=== PATIENT | female | born 1980 | race American Indian/Alaskan Native ===

== ENCOUNTER 2025-03-02 00:54 | Inpatient (IN) | payer OTHER, MEDICAID, SELFPAY ==
[2025-03-02] VITALS (12 sets, daily range): BP systolic 111–141; BP diastolic 65–86; PULSE 82–93; RESP 14–22; TEMP 36.2–37.1; O2SAT 97–100; BMI 49.6; BMI 53.6
--- NOTE | 2025-03-02 01:02 | XR_ITS ---
Examination: AP chest single view Technique one AP portable upright chest single view Exam date and time: March 02, 2025 0129 hrs. Indications: Shortness of breath today Findings: Mild prominence of ventricle Moderate elevation right hemidiaphragm Moderate osteopenia No pneumonia or pulmonary edema Impression: No pneumonia or pulmonary edema
--- NOTE | 2025-03-02 01:25 | PD.EDSKIN ---
ED Skin Abcess FB-RME/HPI General Chief complaint: Skin/Abscess/Foreign Body Stated complaint: RT LOWER LEG SWELLING Time Seen by Provider: 03/02/25 01:25 Arrival date/time: 03/02/25 00:54 RME / HPI RME / HPI narrative: This section includes all my notes and documentations, including HPI, PE, and ED course. Elvis Diane MD HPI: 45-year-old female here with about 24-hour history of right lower leg redness and swelling and warmth and pain. No obvious cause. No known injury. No recent travel history or prolonged bedrest. No obvious fever. Has chills on and off. No other complaints. ROS: All negative except as documented in HPI. Physical Exam: General: Alert and oriented. No acute distress when remaining still. Eyes: Conjunctivae and lids clear. ENT: No nasal congestion. Neck: Supple. Heart: RRR. Lungs: No respiratory distress. Good air movement. No rhonchi, wheezing, rales. Abdomen: Soft and nontender. Legs: Middle third of right lower leg remarkable for erythema and edema and calor and tenderness circumferentially. Skin: Warm and dry. Neuro: Alert and oriented X 3. I reviewed all diagnostic test results. My interpretation of the chest x-ray is infiltrates in left lower field, official radiology report is pending. Blood tests and urine tests remarkable for WBC 16.6, Hgb 7.3, ESR 83, CRP 17, procalcitonin 1.17. At this point, diagnoses include right lower leg cellulitis and severe anemia. Treatment here included IV fluid and Unasyn. I discussed the case with our hospitalist. About the presentation and exam and diagnostics and treatments here. And need of further care in the hospital. Will accept the patient. Elvis Diane MD Related Data Home Medications ?Medication ?Instructions ?Recorded ?Confirmed ferrous sulfate 325 mg (65 mg 325 mg PO BID 07/25/21 07/25/21 iron) tablet,delayed release Previous Rx's ?Medication ?Instructions ?Recorded cyclobenzaprine 10 mg tablet 10 mg PO TID #30 tabs 11/17/19 ibuprofen 600 mg tablet 600 mg PO Q6H #30 tabs 11/17/19 albuterol sulfate 90 mcg/actuation 2 puff inhalation Q4H #8.5 grams 07/25/21 aerosol inhaler Allergies Allergy/AdvReac Type Severity Reaction Status Date / Time No Known Allergies Allergy Verified 07/04/23 20:38 Course Quality Measures none Orders Category Date Time Status COVID-19 Screening Questionnaire NOW Care 03/02/25 02:19 Active Decision to Admit X1 Care 03/02/25 02:19 Active Saline [Insert IV] NOW Care 03/02/25 01:01 Active XR chest 1V portable Stat Exams 03/02/25 01:02 Taken Blood Culture (Lab) Stat Lab 03/02/25 01:20 Received CBC Stat Lab 03/02/25 01:20 Completed CMP [Comprehensive Metabolic Panel] Stat Lab 03/02/25 01:20 Completed CRP [C-Reactive Protein] Stat Lab 03/02/25 01:20 Completed ESR [Sed Rate (ESR)] Stat Lab 03/02/25 01:20 Completed Free T4 (Free Thyroxine) Stat Lab 03/02/25 01:20 Completed HCG,Qualitative Serum Stat Lab 03/02/25 01:20 Completed Lactate (Lactic Acid) Stat Lab 03/02/25 01:20 Completed Magnesium Stat Lab 03/02/25 01:20 Completed Procalcitonin Stat Lab 03/02/25 01:20 Completed UA, C/S IF [Urinalysis, C/S if Indicated] Stat Lab 03/02/25 01:27 Completed Ampicillin/Sulbac Inj [Unasyn Inj] 3 gm Med 03/02/25 01:01 Discontinued Sodium Chloride 0.9% (Pop) [NS 0.9% mini bag] 100 ml IV X1 Doxycycline Inj [Vibramycin Inj] 100 mg Med 03/02/25 03:15 Pending Sodium Chloride 0.9% (Pop) [NS 0.9% mini bag] 100 ml IV Q12H Sodium Chloride 0.9% 1000 ml [Ns] 1,000 ml Med 03/02/25 01:01 Discontinued IV 999 mls/hr ceFAZolin/D5W 2 GM IV [Ancef 2gm Ivpb] Med 03/02/25 03:07 Pending 2 gm in 100 ml IV Q8HR Vital Signs Vital signs: Vital Signs Temperature 98.1 F 03/02/25 00:59 Pulse Rate 93 03/02/25 00:59 Respiratory Rate 18 03/02/25 00:59 Blood Pressure 132/73 H 03/02/25 00:59 Pulse Oximetry (%) 99 03/02/25 00:59 Oxygen Delivery Method Room Air 03/02/25 00:59 Skin / Abscess / Foreign Body Patient data External records reviewed:: [facility] previous records and EMS form Clinical information provided by:: patient and EMS Social determinants that could affect healthcare access:: none Patient has the following chronic illnesses:: Chronic iron deficiency anemia How is presenting disease/condition affected by chronic disease/condition?: exacerbated by Evaluation data The following diagnostics were reviewed and interpreted by me:: lab results and radiology exam(s) Lab and/or radiology exams considered but not ordered:: None Interpretation Summary: Cellulitis and severe anemia Medications / Prescriptions Medications or Prescriptions considered but not ordered:: None Medication administrations:: Medication Administration History Acetaminophen (Acetaminophen 325 Mg Tablet) 650 mg PO Q6H PRN PRN Reason: Fever >101.5 Stop: 04/01/25 03:08 Acetaminophen (Acetaminophen 325 Mg Tablet) 650 mg PO Q6H PRN PRN Reason: PAIN SCALE 1-3 (mild Stop: 04/01/25 03:08 Ferrous Sulfate (Ferrous Sulf 325 Mg Tablet) 325 mg PO QOD [facility] Stop: 04/01/25 08:59 Heparin Sodium (Porcine) (Heparin Sod Inj 5000 Unit/Ml Vial) 5,000 unit SC Q8HR [facility] Stop: 03/16/25 05:59 Hydromorphone HCl (Hydromorphone Inj 2 Mg/Ml Vial) 0.5 mg IVP Q2H PRN PRN Reason: PAIN SCALE 7-10 (Severe Stop: 03/07/25 03:08 Last Admin: 03/02/25 03:49 Dose: 0.5 mg Documented By: EF Cefazolin Sodium (Ancef 2gm Ivpb) 2 gm in 100 mls @ 100 mls/hr IV Q8HR [facility] Stop: 03/09/25 03:06 Doxycycline Hyclate 100 mg/ (Sodium Chloride) 100 mls @ 100 mls/hr IV Q12H [facility] Stop: 03/09/25 03:14 Ondansetron HCl (Ondansetron Inj 2 Mg/Ml Inj 2 Ml) 4 mg IV Q6H PRN; Protocol PRN Reason: NAUSEA OR VOMITING Stop: 04/01/25 03:08 Last Admin: 03/02/25 03:49 Dose: 4 mg Documented By: JEO Oxycodone/Acetaminophen (Oxycodone/Apap 5/325 Tablet) 1 tab PO Q6H PRN PRN Reason: PAIN SCALE 4-6 (Moderate Stop: 03/07/25 03:08 Discontinued Medications Sodium Chloride (Ns) 1,000 mls @ 999 mls/hr IV .Q1H1M ONE Stop: 03/02/25 02:01 Last Infusion: 03/02/25 02:36 Dose: Infused Documented By: Admin: 03/02/25 01:35 Dose: 999 mls/hr Documented By: MILE Ampicillin Sodium/Sulbactam (Sodium 3 gm/ Sodium Chloride) 100 mls @ 200 mls/hr IV X1 ONE Stop: 03/02/25 01:02 Last Infusion: 03/02/25 02:05 Dose: Infused Documented By: Admin: 03/02/25 01:35 Dose: 200 mls/hr Documented By: MILE Doxycycline Hyclate 100 mg/ (Sodium Chloride) 100 mls @ 100 mls/hr IV X1 ONE Stop: 03/02/25 04:14 Last Admin: 03/02/25 03:50 Dose: 100 mls/hr Documented By: JOE Cefazolin Sodium (Ancef 2gm Ivpb) 2 gm in 100 mls @ 100 mls/hr IV X1 ONE Stop: 03/02/25 04:14 In the ER, patient received IV fluid and Unasyn. Consultations Consultation(s) initiated? (list below): No Diagnosis Skin/Abscess Differential Diagnosis: abscess of skin or subcutaneous tissue, urticaria, allergic reaction to drug, cellulitis, insect bites, impetigo and contact dermatitis Most likely diagnosis given after review of the tests above:: Cellulitis and severe anemia Admission Indicated Admission indicated?: indicated Explain why admission is indicated or not indicated:: Cellulitis with pending sepsis and severe anemia Admission Request Was there a request for admission?: Yes Admission Attestation Admission request attestation: Discussed case with Hospitalist service regarding admission. Discussed patients ED course, exam findings, labs, and radiology results. The Hospitalist [agrees] to accept the patient for admission. Disposition Plan Disposition Plan: Admit Discharge Plan Plan Patient Disposition: Admit Acute Care w/in Hospital Problem List Clinical Impression: Cellulitis of right lower leg, Severe anemia
[2025-03-02 01:34] LABS: Collection Type, Urine Clean Catch
[2025-03-02 01:35] LABS: Lactate (Lactic Acid) 1.5 mMol/L (0.4-2.0)
[2025-03-02] MEDS: SODIUM CHLORIDE 0.9% 1000 ML 1,000 ML 999 ML IV (01:35)
[2025-03-02] MEDS: AMPICILLIN/SULBAC INJ 3 GM in SODIUM CHLORIDE 0.9% (POP) 100 ML IV (01:35)
[2025-03-02 01:48] LABS: Basophils % (Auto) 0 % (0-2.5); Eosinophils % (Auto) 0 % (0-10); Hematocrit 27.3 % (36.0-46.0); Immature Granulocytes % (Auto) 0 % (0-0); Immature Granulocytes Auto 0.06 Thou/mm3 (0.00-0.00); Lymphocytes # (Auto) 1.6 Thou/mm3 (1.0-4.8); Lymphocytes % (Auto) 9 % (10-50); Mean Corpuscular HGB Conc 26.7 g/dl (31.0-37.0); Mean Corpuscular Volume 60 fL (80-100); Monocytes # (Auto) 0.9 Thou/mm3 (0.0-0.8); Monocytes % (Auto) 5 % (0-12); Neutrophils % (Auto) 85 % (37-80); Nucleated Red Blood Cell % 0 /100 WBC (0); Platelet Count 569 Thou/mm3 (140-440); RDW Standard Deviation 40.1 fL (36.4-46.3); Red Blood Count 4.57 Miln/mm3 (4.00-5.20); White Blood Count 16.6 Thou/mm3 (3.6-11.0)
[2025-03-02 01:49] LABS: Hemoglobin 7.3 g/dL (12.0-16.0)
[2025-03-02 01:49] LABS: Bilirubin,Urine Negative (Negative); Blood,Urine Negative (Negative); Clarity,Urine Clear (Clear/Hazy); Color,Urine Lt-Yellow (Lt Yel-Yel); Culture Indicated,Urine Not Indicated; Glucose, Urine Negative (Negative); Hyaline Casts,Urine < 1 /hpf (0-1); Ketones,Urine Negative (Negative); Leukocyte Esterase,Urine Negative (Negative); Nitrite,Urine Negative (Negative); PH,Urine 5.5 (5.0-7.0); Protein,Urine Negative (Neg - Trace); RBC,Urine 1 /hpf (0-3); Specific Gravity,Urine 1.012 (1.001-1.035); Squamous Epithelial Cell,Urine 1 /hpf (0-5); Urobilinogen,Urine Negative mg/dL (0.0-1.0); WBC,Urine 1 /hpf (0-5)
[2025-03-02 01:53] LABS: HCG,Qualitative Serum Negative
[2025-03-02 01:55] LABS: Sed Rate (ESR) 83 mm/hr (0-20)
[2025-03-02 02:19] LABS: Alanine Aminotransferase 18 U/L (10-49); Albumin, Serum 4.1 gm/dL (3.5-5.0); Albumin/Globulin Ratio 1.4 (1.2-2.2); Alkaline Phosphatase 109 U/L (46-116); Anion Gap 9 (7-16); Aspartate Amino Transferase 18 U/L (0-34); BUN/Creatinine Ratio 16 Ratio (12-20); Bilirubin,Total 1.1 mg/dL (0.3-1.2); Blood Urea Nitrogen 14 mg/dL (9-23); Calcium 8.4 mg/dL (8.3-10.6); Calcium (Corrected) 8.4 mg/dL (8.5-10.1); Carbon Dioxide 23.8 mMol/L (20.0-31.0); Chloride 105 mMol/L (98-107); Creatinine (Component) 0.9 mg/dL (0.6-1.3); Estimated Creatinine Clearance 103.6 mL/min (>60); Free T4 (Free Thyroxine) 1.28 ng/dL (0.89-1.76); Globulin 2.9 gm/dL (2.3-3.5); Glucose 150 mg/dL (74-106); Magnesium 1.9 mg/dL (1.6-2.6); Osmolality,Calculated 279 (275-295); Potassium 3.7 mMol/L (3.4-5.1); Procalcitonin 1.17 ng/ml (0.0-0.49); Sodium 138 mMol/L (136-145); eGFR > 60 See Note
--- NOTE | 2025-03-02 03:13 | XR_ITS ---
Examination: Venous duplex lower extremity sonogram, bilateral. Date and time of exam: March 02, 2025 0847 hours INDICATIONS: Lower leg redness swelling and pain beginning 2 days ago Technique: Multiple sonographic images of the deep venous system have been obtained. B-mode/2-D grayscale imaging of vascular structures and Doppler spectral analysis (waveforms) and color performed Both legs are examined. Findings: Deep venous systems do not demonstrate abnormal echogenicity. All visualized deep veins exhibit compressibility. All visualized deep veins exhibit augmentation. Impression: Negative for deep vein thrombosis
--- NOTE | 2025-03-02 03:15 | ESHP_ITS ---
Documentation for date of: 03/02/25 [facility] History of Present Illness History of present illness: The patient is a 45-year-old female with significant past medical history of morbid obesity, chronic iron deficiency anemia, chronic lower extremity swelling and methamphetamine abuse presented with chief complaint of right lower extremity redness and pain for 1 day. She also admitted that she has been having some pain over her left leg, but no redness. She admitted subjective fever and chills associated with nausea, but denied vomiting, headache, lightheadedness, sore throat, chest pain, SOB, abdominal pain, any changes in bowel or bladder habit. In the ED her vitals were stable with blood pressure 132/73 and heart rate 93. Saturating 99% on room air. Labs are significant for white count 16.6, hemoglobin 7.3, MCV 60, platelet 569, ESR 83, blood sugar 150, corrected calcium 8.4, CRP 17.0, Pro-Reinaldo 1.17 and UA negative. Chest x-ray as interpreted by me was significant for mild vascular congestion. PMH: As mentioned above SHX: Unremarkable Social history: Past smoker, currently vaping, social drinker, admitted methamphetamine abuse disorder with last use 2 to 3 days ago Family history: Significant for CHF in both parents Medications: None Allergies: No known allergies Patient was given IV bolus normal saline fluid 1 L and 3 g ampicillin-sulbactam and admitted to MedSurg unit for further management of right leg cellulitis. Review of Systems Review of Systems Systems Reviewed: All systems reviewed, normal except as documented Exam Vital Signs Temp Pulse Resp BP Pulse Ox O2 Del Method 98.1 F 93 18 132/73 H 99 Room Air 03/02/25 00:59 03/02/25 00:59 03/02/25 00:59 03/02/25 00:59 03/02/25 00:59 03/02/25 00:59 Narrative Exam General: Cooperative, morbidly obese female, no acute distress, Alert and Oriented x 3 HEENT: Moist mucous membranes, oropharynx clear Neck: Supple, No masses, No JVD CVS: S1S2 Regular rate and rhythm, No murmurs, rubs or gallops Lungs: Clear to auscultation with no accessory use, no wheeze no rhonchi Abd: Soft, NT/ND, +BS, no organomegaly Ext: Non-pitting edema over bilateral lower limb, warm and well perfused Skin: Right leg erythema extending from above ankle to mid washburn level and circumferential, warm to touch Psych: Appropriate mood and affect Results: Labs 03/02/25 01:20 03/02/25 01:20 Labs: Short CBC 03/02/25 Range/Units 01:20 WBC 16.6 H (3.6-11.0) Thou/mm3 Hgb 7.3 L (12.0-16.0) g/dL Hct 27.3 L (36.0-46.0) % Plt Count 569 H (140-440) Thou/mm3 BMP 03/02/25 01:20 Sodium 138 Potassium 3.7 Chloride 105 Carbon Dioxide 23.8 BUN 14 Creatinine 0.9 Glucose 150 H Calcium 8.4 Liver Function 03/02/25 Range/Units 01:20 Total Bilirubin 1.1 (0.3-1.2) mg/dL AST 18 (0-34) U/L ALT 18 (10-49) U/L Alkaline Phosphatase 109 (46-116) U/L Albumin 4.1 (3.5-5.0) gm/dL Urine 03/02/25 Range/Units 01:27 Urine Color Lt-Yellow (Lt Yel-Yel) Urine Clarity Clear (Clear/Hazy) Urine pH 5.5 (5.0-7.0) Ur Specific [place] 1.012 (1.001-1.035) Urine Protein Negative (Neg - Trace) Urine Glucose (UA) Negative (Negative) Quality Measures Quality Measures VTE prophylaxis Medications Home Medications and Allergies Home Medications ?Medication ?Instructions ?Recorded ?Confirmed ?Type ferrous sulfate 325 mg (65 mg 325 mg PO BID 07/25/21 0 07/25/21 History iron) tablet,delayed release Allergies Allergy/AdvReac Type Severity Reaction Status Date / Time No Known Allergies Allergy Verified 07/04/23 20:38 Visit Medications Acetaminophen (Acetaminophen 325 Mg Tablet) 650 mg PO Q6H PRN PRN Reason: Fever >101.5 Stop: 04/01/25 03:08 Acetaminophen (Acetaminophen 325 Mg Tablet) 650 mg PO Q6H PRN PRN Reason: PAIN SCALE 1-3 (mild Stop: 04/01/25 03:08 Heparin Sodium (Porcine) (Heparin Sod Inj 5000 Unit/Ml Vial) 5,000 unit SC Q8HR [facility] Stop: 03/16/25 05:59 Hydromorphone HCl (Hydromorphone Inj 2 Mg/Ml Vial) 0.5 mg IVP Q2H PRN PRN Reason: PAIN SCALE 7-10 (Severe Stop: 03/07/25 03:08 Cefazolin Sodium (Ancef 2gm Ivpb) 2 gm in 100 mls @ 100 mls/hr IV Q8HR [facility] Stop: 03/09/25 03:06 Doxycycline Hyclate 100 mg/ (Sodium Chloride) 100 mls @ 100 mls/hr IV Q12H [facility] Stop: 03/09/25 03:14 Doxycycline Hyclate 100 mg/ (Sodium Chloride) 100 mls @ 100 mls/hr IV X1 ONE Stop: 03/02/25 04:14 Ondansetron HCl (Ondansetron Inj 2 Mg/Ml Inj 2 Ml) 4 mg IV Q6H PRN; Protocol PRN Reason: NAUSEA OR VOMITING Stop: 04/01/25 03:08 Oxycodone/Acetaminophen (Oxycodone/Apap 5/325 Tablet) 1 tab PO Q6H PRN PRN Reason: PAIN SCALE 4-6 (Moderate Stop: 03/07/25 03:08 Discontinued Medications Sodium Chloride (Ns) 1,000 mls @ 999 mls/hr IV .Q1H1M ONE Stop: 03/02/25 02:01 Last Infusion: 03/02/25 02:36 Dose: Infused Ampicillin Sodium/Sulbactam (Sodium 3 gm/ Sodium Chloride) 100 mls @ 200 mls/hr IV X1 ONE Stop: 03/02/25 01:02 Last Infusion: 03/02/25 02:05 Dose: Infused Cefazolin Sodium (Ancef 2gm Ivpb) 2 gm in 100 mls @ 100 mls/hr IV X1 ONE Stop: 03/02/25 04:14 Assessment & Plan Plan The patient is a 45-year-old female with significant past medical history of morbid obesity, chronic iron deficiency anemia, chronic lower extremity swelling and methamphetamine abuse presented with chief complaint of right lower extremity redness and pain for 1 day and admitted to MedSurg unit for further management of right leg cellulitis. #Right leg cellulitis #Leukocytosis #Rule out DVT #Chronic bilateral lower extremity swelling Patient presented with right leg erythema for 1 day, associated with pain and swelling. Patient reported chronic bilateral leg swelling, but during physical examination it was nonpitting. She admitted subjective fever and chills associated with nausea. Denied any physical injury. Presented with white count of 16.6, CRP 17.0, Pro-Reinaldo 1.17 and ESR 83. Patient received 1 L IV normal saline bolus in the ED and ampicillin-sulbactam 3 g IV x 1 in the ED - Started on cefazolin 2 g every 8 hourly - Started on doxycycline 100 Mg twice daily - Blood culture ordered - Bilateral lower extremity Doppler ultrasound ordered - Daily a.m. labs for CBC, CMP and electrolytes #Chronic microcytic anemia Likely secondary to occasional heavy menstrual bleed, iron panel on 2019 revealed iron deficiency anemia Presented with hemoglobin of 7.3 and MCV 60 with RDW 40.1 - Started the patient on ferrous sulfate 325 mg every other day - Ordered iron panel, ferritin, peripheral smear and reticulocyte count #Morbid obesity - Nutritional consultation done #Methamphetamine abuse disorder - Social service consulted Health maintenance: Dispo: Patient admitted to MedSur unit for further management of right leg cellulitis Diet: Regular diet DVT prophylaxis: Subcu heparin CODE STATUS: Full code The patient's management plan was discussed with my attending physician MD Bethel Chou MD, PGY2 Attending Provider Attestation/Addendum I have examined the patient, reviewed labs and imaging findings, discussed the case with the resident(s), and reviewed entered orders. I agree with the plan of care as outlined in this note, with these additional summaries/recommendations: Patient is a 45-year-old female with a medical history of morbid obesity, substance abuse, iron deficiency anemia, and cellulitis who presents to [facility] emergency department on 03/02/2025 with chief complaint of right lower leg rash/swelling. Patient seen at bedside. She endorses erythema, swelling, and pain in right lower extremity. Symptoms have been present for 1 day and progressively worsened. Patient diagnosed with cellulitis.Patient was also noted to have leukocytosis with WBC count 16.6 & procalcitonin 1.17. Blood cultures taken in the emergency department & follow-up results when available. Start IV antibiotics & pain management as needed. Order right lower extremity ultrasound to rule out deep vein thrombosis. Start DVT prophylaxis with chemical anticoagulation. Patient has history of iron deficiency anemia but does not appear to have been taking ferrous sulfate recently. Hemoglobin 7.3 although no evidence of bleeding at this time. Start ferrous sulfate. Patient does have history of methamphetamine use although patient reports she is no longer using. We will monitor for withdrawal symptoms. Patient updated on the plan and in agreement. Repeat hematology and chemistry panel in AM. Dr. Haydee MD
[2025-03-02] MEDS: ONDANSETRON INJ 2 MG/ML INJ 2 ML 4 MG IV (03:49)
[2025-03-02] MEDS: HYDROmorphone INJ 2 MG/ML VIAL 0.5 MG IVP ×3 (03:49→21:22)
[2025-03-02] MEDS: DOXYCYCLINE INJ 100 MG in SODIUM CHLORIDE 0.9% (POP) 100 ML IV ×3 (03:50→21:23)
[2025-03-02 04:41] LABS: Path Review Blood Smear Sent to Pathologist
[2025-03-02] MEDS: HEPARIN SOD INJ 5000 UNIT/ML VIAL SC (05:34)
[2025-03-02] MEDS: ceFAZolin/D5W 2 GM IV 2 GM/100 ML BAG IV ×3 (06:02→23:31)
[2025-03-02] MEDS: oxyCODONE/APAP 5/325 TABLET 1 TAB PO (06:16)
[2025-03-02] MEDS: FERROUS SULF 325 MG TABLET PO (08:05)
--- NOTE | 2025-03-02 10:49 | XR_ITS ---
Examination: CT right lower extremity with intravenous contrast 2-D sagittal reconstructions. 2-D coronal reconstructions. 3-D reconstructions. Date and time of exam:March 02, 2025 1429 hours INDICATIONS: Right lower leg redness swelling and pain this week, sepsis alert CTDI: vol (mGy):13.5 DLP: (mGycm):1364 Technique: Multiple 1.25 mm axial sections of the right lower extremity post intravenous ministration 60 cc Isovue-[id number] have been obtained. 2-D sagittal and coronal reconstructions have been obtained. 3-D reconstructions have been obtained. Low dose protocols were performed. One or more of the following dose reduction techniques were used; automated exposure control, adjustment of the mA and/or KV according to patient size, use of iterative reconstruction technique. Findings: No knee effusion Mild edema about the musculature of the lower leg No soft tissue abscess Mild skin thickening at the level of the ankle Old fracture of the distal fibular shaft No cortical bone destruction or endosteal scalloping No abnormal soft tissue enhancing lesion IMPRESSION: Mild edema in the subcutaneous fatty tissue lower leg No soft tissue abscess Negative for osteomyelitis
[2025-03-02 11:27] LABS: Basophils % (Auto) 0 % (0-2.5); Eosinophils # (Auto) 0.2 Thou/mm3 (0.0-0.5); Eosinophils % (Auto) 1 % (0-10); Hematocrit 25.3 % (36.0-46.0); Immature Granulocytes % (Auto) 0 % (0-0); Immature Granulocytes Auto 0.04 Thou/mm3 (0.00-0.00); Lymphocytes # (Auto) 1.9 Thou/mm3 (1.0-4.8); Lymphocytes % (Auto) 18 % (10-50); Mean Corpuscular HGB Conc 26.9 g/dl (31.0-37.0); Mean Corpuscular Hemoglobin 16.3 pg (25.0-35.0); Mean Corpuscular Volume 61 fL (80-100); Monocytes # (Auto) 0.7 Thou/mm3 (0.0-0.8); Monocytes % (Auto) 6 % (0-12); Neutrophils # (Auto) 7.7 Thou/mm3 (1.8-7.7); Neutrophils % (Auto) 74 % (37-80); Nucleated Red Blood Cell % 0 /100 WBC (0); Platelet Count 503 Thou/mm3 (140-440); Red Blood Count 4.16 Miln/mm3 (4.00-5.20); White Blood Count 10.4 Thou/mm3 (3.6-11.0)
[2025-03-02 11:34] LABS: Hemoglobin 6.8 g/dL (12.0-16.0)
[2025-03-02 11:42] LABS: Glucose Estimated Average 117 mg/dL (80-131); Hemoglobin A1C 5.7 % Hgb (4.8-6.0)
[2025-03-02 12:01] LABS: Alanine Aminotransferase 17 U/L (10-49); Albumin, Serum 3.7 gm/dL (3.5-5.0); Albumin/Globulin Ratio 1.4 (1.2-2.2); Alkaline Phosphatase 119 U/L (46-116); Anion Gap 7 (7-16); Aspartate Amino Transferase 15 U/L (0-34); BUN/Creatinine Ratio 16 Ratio (12-20); Bilirubin,Total 0.6 mg/dL (0.3-1.2); Blood Urea Nitrogen 13 mg/dL (9-23); Calcium 8.2 mg/dL (8.3-10.6); Calcium (Corrected) 8.4 mg/dL (8.5-10.1); Cardiac Risk Estimate 2.9 RATIO (3.7-5.6); Chloride 107 mMol/L (98-107); Cholesterol 72 mg/dL (132-200); Creatinine (Component) 0.8 mg/dL (0.6-1.3); Estimated Creatinine Clearance 122.4 mL/min (>60); Globulin 2.7 gm/dL (2.3-3.5); Glucose 133 mg/dL (74-106); HDL Cholesterol 25 mg/dL (40-60); LDL Cholesterol,Calculated 27 mg/dL (0-130); Magnesium 1.9 mg/dL (1.6-2.6); Osmolality,Calculated 277 (275-295); Potassium 3.6 mMol/L (3.4-5.1); Sodium 138 mMol/L (136-145); Thyroid Stimulating Hormone 1.55 uIU/mL (0.55-4.78); Total Protein 6.4 gm/dL (5.7-8.2); Triglycerides 102 mg/dL (30-150); eGFR > 60 See Note
[2025-03-02 12:06] LABS: Ferritin 48 ng/mL (7.3-270.7); Iron 8 mcg/dL (50-170); Percent Iron Saturation 2 % (20-55); Total Iron Binding Capacity 315 mcg/dL (250-425); Unsaturated Iron Binding 307 (225-295)
[2025-03-02 13:24] LABS: Hematocrit 26.4 % (36.0-46.0)
[2025-03-02 13:27] LABS: Hemoglobin 6.8 g/dL (12.0-16.0)
[2025-03-02] MEDS: PANTOPRAZOLE INJ 40 MG VIAL IVP ×2 (14:06→21:22)
--- NOTE | 2025-03-02 14:19 | ESPR_ITS ---
<Statement entered by Lorena Solitario MD - 03/02/25 16:20> 45 y old F was admitted for cellulites treatment and pain management, requiring IV abx. No acute overnight events #LLE pain /swelling #cellulitis -cultures pending -continue cefazolin and doxy -CT LLE w/ contrast to r/o any abcess that may require surgical intervention #ANABEL, which appears to be chronic, however we will defer Iv iron for now in a setting of acute infection. -1PRBC,pot-transfusion H&H -Po tablets outpatient. I discussed with and supervised the post graduate intern physician who took care of this patient. I personally saw and examined the patient and discussed the assessment and plan with the entire medicine team, including my attending , I agree with the assessment and plan as documented below Lorena Solitario M.D. PGY-2 Disclaimer: Despite multiple revisions, due to the dictation software being used, the document bellow may not be free of grammatical errors including phonetic/typographic errors. However, this does not deter from our commitment to providing health care in the patient's best interest in mind. Documentation for date of: 03/02/25 Subjective Subjective Interval history: No overnight events. Patient seen examined at bedside, resting comfortably. Patient endorses pain and tenderness right lower extremity, chills prior to symptom onset. Patient denies current fevers, chills, nausea, vomiting, melena, hematochezia, hematemesis, nausea, vomiting, abdominal pain. Patient had decrease in hemoglobin confirmed on repeat testing, will transfuse 1 unit. GI consulted, planning for EGD tomorrow. Exam Vital Signs Temp Pulse Resp BP Pulse Ox O2 Del Method 97.8 F 82 18 133/72 H 98 Room Air 03/02/25 11:03 03/02/25 11:03 03/02/25 11:03 03/02/25 11:03 03/02/25 11:03 03/02/25 11:03 Narrative Exam PE: Gen: Well-developed and well-nourished. Obese. HEENT: NCAT, PERRLA, EOMI, MMM, anicteric conjunctivae. CVS: normal S1 and S2. RRR. No M/R/G. Resp: CTA B/L. No rhonchi, rales, crackles or wheezing. Poor lung sounds due to body habitus. Abd: soft, non-tender, non-distended. MSK: Good ROM in BUE & BLE. Bilateral lower extremity edema. Right ankle erythema, tenderness, swelling up to mid washburn. Neuro: CN II-XII grossly intact. Strength 5/5 in BUE & BLE. Alert and oriented x3. Psych: appropriate mood and affect. Objective Labs 03/02/25 12:49 03/02/25 10:53 Labs: Laboratory Results - last 24 hr 03/02/25 03/02/25 03/02/25 01:20 01:27 10:53 WBC 16.6 H 10.4 D RBC 4.57 4.16 Hgb 7.3 L 6.8 L* Hct 27.3 L 25.3 L MCV 60 L 61 L MCH 16.0 L 16.3 L MCHC 26.7 L 26.9 L RDW Std Deviation 40.1 42.0 Plt Count 569 H 503 H D Neut % (Auto) 85 H 74 Lymph % (Auto) 9 L 18 [place] % (Auto) 5 6 Eos % (Auto) 0 1 Baso % (Auto) 0 0 Neut # (Auto) 14.0 H 7.7 Lymph # (Auto) 1.6 1.9 [place] # (Auto) 0.9 H 0.7 Eos # (Auto) 0.0 0.2 Baso # (Auto) 0.0 0.0 Immature Gran # (Auto) 0.06 H 0.04 H Absolute Nucleated RBC 0.00 0.00 Immature Gran % 0 0 Nucleated RBC % 0 0 Smear Path Review Sent to Pathologist ESR 83 H Sodium 138 138 Potassium 3.7 3.6 Chloride 105 107 Carbon Dioxide 23.8 24.0 Anion Gap 9 7 BUN 14 13 Creatinine 0.9 0.8 Estim Creat Clear Calc 103.6 122.4 eGFR > 60 > 60 BUN/Creatinine Ratio 16 16 Glucose [address] Glu mg/dL 117 Hemoglobin A1c 5.7 Calculated Osmolality 279 277 Lactic Acid 1.5 Calcium 8.4 8.2 L Corrected Calcium 8.4 L 8.4 L Magnesium 1.9 1.9 Iron 8 L TIBC 315 Iron Saturation 2 L Unsat Iron Binding 307 H Ferritin 48 Total Bilirubin 1.1 0.6 D AST 18 15 ALT 18 17 Alkaline Phosphatase 109 119 H C-Reactive Prot, Quant 17.0 H Total Protein 7.0 6.4 Albumin 4.1 3.7 Globulin 2.9 2.7 Albumin/Globulin Ratio 1.4 1.4 Triglycerides 102 Cholesterol 72 L LDL Cholesterol, Calc 27 HDL Cholesterol 25 L Cholesterol/HDL Ratio 2.9 L Procalcitonin 1.17 H TSH 1.55 Free T4 1.28 HCG, Qual Negative Ur Collection Type Clean Catch Urine Color Lt-Yellow Urine Clarity Clear Urine pH 5.5 Ur Specific [place] 1.012 Urine Protein Negative Urine Glucose (UA) Negative Urine Ketones Negative Urine Blood Negative Urine Nitrite Negative Urine Bilirubin Negative Urine Urobilinogen (Auto) Negative Ur Leukocyte Esterase Negative Urine RBC 1 Urine WBC 1 Ur Squamous Epith Cells 1 Urine Bacteria None Hyaline Casts < 1 Ur Culture Indicated? Not Indicated Blood Type Antibody Screen Crossmatch Blood Bank Wristband ID 03/02/25 12:49 WBC RBC Hgb 6.8 L* Hct 26.4 L MCV MCH MCHC RDW Std Deviation Plt Count Neut % (Auto) Lymph % (Auto) [place] % (Auto) Eos % (Auto) Baso % (Auto) Neut # (Auto) Lymph # (Auto) [place] # (Auto) Eos # (Auto) Baso # (Auto) Immature Gran # (Auto) Absolute Nucleated RBC Immature Gran % Nucleated RBC % Smear Path Review ESR Sodium Potassium Chloride Carbon Dioxide Anion Gap BUN Creatinine Estim Creat Clear Calc eGFR BUN/Creatinine Ratio Glucose Estimated Ave Glu mg/dL Hemoglobin A1c Calculated Osmolality Lactic Acid Calcium Corrected Calcium Magnesium Iron TIBC Iron Saturation Unsat Iron Binding Ferritin Total Bilirubin AST ALT Alkaline Phosphatase C-Reactive Prot, Quant Total Protein Albumin Globulin Albumin/Globulin Ratio Triglycerides Cholesterol LDL Cholesterol, Calc HDL Cholesterol Cholesterol/HDL Ratio Procalcitonin TSH Free T4 HCG, Qual Ur Collection Type Urine Color Urine Clarity Urine pH Ur Specific [place] Urine Protein Urine Glucose (UA) Urine Ketones Urine Blood Urine Nitrite Urine Bilirubin Urine Urobilinogen (Auto) Ur Leukocyte Esterase Urine RBC Urine WBC Ur Squamous Epith Cells Urine Bacteria Hyaline Casts Ur Culture Indicated? Blood Type O Positive Antibody Screen NEGATIVE Crossmatch See Detail Blood Bank Wristband ID Yes Quality Measures Quality Measures none (Anticoag contraindicated due to anemia, SCDs contraindicated due to cellulitis.) Assessment & Plan Assessment Current Active Medications: Generic Name Dose Route Start Last Admin Trade Name Freq PRN Reason Stop Dose Admin Acetaminophen 650 mg 03/02/25 03:09 Acetaminophen 325 Mg Tablet PO 04/01/25 03:08 Q6H PRN Fever >101.5 Acetaminophen 650 mg 03/02/25 03:09 Acetaminophen 325 Mg Tablet PO 04/01/25 03:08 Q6H PRN PAIN SCALE 1-3 (mild Ferrous Sulfate 325 mg 03/02/25 09:00 03/02/25 08:05 Ferrous Sulf 325 Mg Tablet PO 04/01/25 08:59 325 mg QOD ARIANNA Administration Heparin Sodium (Porcine) 5,000 unit 03/02/25 06:00 03/02/25 05:34 Heparin Sod Inj 5000 Unit/Ml Vial SC 03/16/25 05:59 5,000 unit Q8HR ARIANNA Administration Hydromorphone HCl 0.5 mg 03/02/25 03:09 03/02/25 11:48 Hydromorphone Inj 2 Mg/Ml Vial IVP 03/07/25 03:08 0.5 mg Q2H PRN Administration PAIN SCALE 7-10 (Severe Cefazolin Sodium 2 gm in 100 mls @ 100 mls/hr 03/02/25 06:00 03/02/25 14:06 Ancef 2gm Ivpb IV 03/09/25 05:59 100 mls/hr Q8HR ARIANNA Administration Doxycycline Hyclate 100 mg/ 100 mls @ 100 mls/hr 03/02/25 09:00 03/02/25 08:04 Sodium Chloride IV 03/09/25 08:59 100 mls/hr Q12H ARIANNA Administration Ondansetron HCl 4 mg 03/02/25 03:09 03/02/25 03:49 Ondansetron Inj 2 Mg/Ml Inj 2 Ml IV 04/01/25 03:08 4 mg Q6H PRN Administration NAUSEA OR VOMITING Protocol Oxycodone/Acetaminophen 1 tab 03/02/25 03:09 03/02/25 06:16 Oxycodone/Apap 5/325 Tablet PO 03/07/25 03:08 1 tab Q6H PRN Administration PAIN SCALE 4-6 (Moderate Pantoprazole Sodium 40 mg 03/02/25 13:45 03/02/25 14:06 Pantoprazole Inj 40 Mg Vial IVP 04/01/25 13:44 40 mg BID ARIANNA Administration Plan 45-year-old female with significant past medical history of morbid obesity, chronic iron deficiency anemia, chronic lower extremity swelling and methamphetamine abuse presented with chief complaint of right lower extremity redness and pain, admitted for further management of right leg cellulitis. #Right leg cellulitis, nonseptic #Chronic bilateral lower extremity swelling Patient presented with right leg erythema for 1 day, associated with pain and swelling, and subjective chills. Patient reported chronic bilateral leg swelling. Denied any physical injury. On exam was small area of fluctuance on medial. Presented with white count of 16.6, CRP 17.0, Pro-Reinaldo 1.17 and ESR 83. Patient received 1 L IV normal saline bolus in the ED and ampicillin-sulbactam 3 g IV x 1 in the ED Bilateral lower extremity duplex ultrasound negative. CT right lower extremity showed no abscess, soft tissue edema. - Started on cefazolin 2 g every 8 hourly (started 03/02) - Started on doxycycline 100 Mg twice daily (started 03/02) - Blood culture ordered #Acute on chronic microcytic anemia Likely secondary to occasional heavy menstrual bleed, iron panel on 2018 revealed iron deficiency anemia Presented with hemoglobin of 7.3 and MCV 60 with RDW 40.1 Hemoglobin dropped to 6.8 after admission, confirmed on repeat testing. Patient denies hematemesis, melena, hematochezia. GI consulted. Iron panel indicates ANABEL: Iron 8, TIBC 315, unsaturated iron binding 307, and ferritin 48. - Started the patient on ferrous sulfate 325 mg every other day - GI consulted, pending EGD - Hold anticoagulation - H. pylori antigen testing - Transfuse 1 unit PRBC - Posttransfusion H&H #Morbid obesity - Nutritional consultation done #Methamphetamine abuse disorder - Social service consulted Diet: Regular diet, n.p.o. after midnight DVT prophylaxis: Contraindicated GI prophylaxis: Protonix 40 mg twice daily CODE STATUS: Full code Plan of care discussed with senior resident Dr. Solitario PGY?[address] Sanchez. Johnny Pastrana MD PGY?1
--- NOTE | 2025-03-02 16:07 | ESCONSULT_ITS ---
HPI Data of Consult Requesting Physician: Juan Sanchez MD Primary Care Provider: Srinivas Perez PA-C Consult Narrative History of present illness: Pt is a 45-year-old female with significant past medical history of morbid obesity, chronic iron deficiency anemia, chronic lower extremity swelling and methamphetamine abuse presented with chief complaint of right lower extremity redness and pain for 1 day. dxed with cellulites, hgb dropping. no melena. cc:: cc: Juan Sanchez MD Review of Systems Review of Systems Narrative Review of Systems: 12 systems reviewed and negative Meds Home Medications and Allergies Home Medications ?Medication ?Instructions ?Recorded ?Confirmed ?Type ferrous sulfate 325 mg (65 mg 325 mg PO BID 07/25/21 0 07/25/21 History iron) tablet,delayed release Allergies Allergy/AdvReac Type Severity Reaction Status Date / Time No Known Allergies Allergy Verified 07/04/23 20:38 Exam Vital Signs Temp Pulse Resp BP Pulse Ox O2 Del Method 97.8 F 82 18 133/72 H 98 Room Air 03/02/25 11:03 03/02/25 11:03 03/02/25 11:03 03/02/25 11:03 03/02/25 11:03 03/02/25 11:03 Routine Abdominal Exam Comments: abdomen distended Results Labs 03/02/25 12:49 03/02/25 10:53 Labs: Short CBC 03/02/25 03/02/25 03/02/25 Range/Units 01:20 10:53 12:49 WBC 16.6 H 10.4 D (3.6-11.0) Thou/mm3 Hgb 7.3 L 6.8 L* 6.8 L* (12.0-16.0) g/dL Hct 27.3 L 25.3 L 26.4 L (36.0-46.0) % Plt Count 569 H 503 H D (140-440) Thou/mm3 BMP 03/02/25 03/02/25 01:20 10:53 Sodium 138 138 Potassium 3.7 3.6 Chloride 105 107 Carbon Dioxide 23.8 24.0 BUN 14 13 Creatinine 0.9 0.8 Glucose 150 H 133 H Calcium 8.4 8.2 L Liver Function 03/02/25 03/02/25 Range/Units 01:20 10:53 Total Bilirubin 1.1 0.6 D (0.3-1.2) mg/dL AST 18 15 (0-34) U/L ALT 18 17 (10-49) U/L Alkaline Phosphatase 109 119 H (46-116) U/L Albumin 4.1 3.7 (3.5-5.0) gm/dL Urine 03/02/25 Range/Units 01:27 Urine Color Lt-Yellow (Lt Yel-Yel) Urine Clarity Clear (Clear/Hazy) Urine pH 5.5 (5.0-7.0) Ur Specific [place] 1.012 (1.001-1.035) Urine Protein Negative (Neg - Trace) Urine Glucose (UA) Negative (Negative) Assessment and Plan Additional Assessment & Plan Additional Plan: 45-year-old female with significant past medical history of morbid obesity, chronic iron deficiency anemia, chronic lower extremity swelling and methamphetamine abuse presented with chief complaint of right lower extremity redness and pain for 1 day. dxed with cellulites, hgb dropping. no melena. U/S of Abdomen PPI Bid Keep hgb above 7 NPO at [place] EGD tomorrow Check H.Pylori Consider consulting Hematology Check Ferritin Will follow
[2025-03-03] VITALS (12 sets, daily range): BP systolic 105–149; BP diastolic 57–96; PULSE 77–99; RESP 12–18; TEMP 36–36.9; O2SAT 96–100
[2025-03-03 00:46] LABS: Albumin, Serum 3.7 gm/dL (3.5-5.0); Anion Gap 5 (7-16); BUN/Creatinine Ratio 12 Ratio (12-20); Blood Urea Nitrogen 11 mg/dL (9-23); Calcium 8.2 mg/dL (8.3-10.6); Calcium (Corrected) 8.4 mg/dL (8.5-10.1); Carbon Dioxide 26.6 mMol/L (20.0-31.0); Chloride 106 mMol/L (98-107); Creatinine (Component) 0.9 mg/dL (0.6-1.3); Estimated Creatinine Clearance 107.1 mL/min (>60); Glucose 146 mg/dL (74-106); Osmolality,Calculated 278 (275-295); Potassium 3.7 mMol/L (3.4-5.1); Sodium 138 mMol/L (136-145); eGFR > 60 See Note
[2025-03-03 01:26] LABS: Hematocrit 28.2 % (36.0-46.0)
[2025-03-03 01:32] LABS: Hemoglobin 7.6 g/dL (12.0-16.0)
[2025-03-03] MEDS: ceFAZolin/D5W 2 GM IV 2 GM/100 ML BAG IV ×3 (05:28→21:49)
[2025-03-03 06:04] LABS: Basophils % (Auto) 1 % (0-2.5); Eosinophils # (Auto) 0.2 Thou/mm3 (0.0-0.5); Eosinophils % (Auto) 4 % (0-10); Immature Granulocytes % (Auto) 1 % (0-0); Immature Granulocytes Auto 0.04 Thou/mm3 (0.00-0.00); Immature Reticulocyte Fraction 35.3 % (3.0-15.9); Lymphocytes % (Auto) 30 % (10-50); Mean Corpuscular HGB Conc 26.5 g/dl (31.0-37.0); Mean Corpuscular Hemoglobin 17.2 pg (25.0-35.0); Mean Corpuscular Volume 65 fL (80-100); Monocytes # (Auto) 0.6 Thou/mm3 (0.0-0.8); Monocytes % (Auto) 9 % (0-12); Neutrophils # (Auto) 3.7 Thou/mm3 (1.8-7.7); Neutrophils % (Auto) 57 % (37-80); Nucleated Red Blood Cell % 0 /100 WBC (0); Platelet Count 467 Thou/mm3 (140-440); RDW Standard Deviation 48.3 fL (36.4-46.3); Red Blood Count 4.77 Miln/mm3 (4.00-5.20); Reticulocyte % (Auto) 1.2 % (0.5-1.5); Reticulocyte Absolute Auto 57.2 Biln/L (25.0-75.0); Reticulocyte Hgb Content 15.9 pg (28.0-35.0); White Blood Count 6.6 Thou/mm3 (3.6-11.0)
[2025-03-03 06:07] LABS: Hemoglobin 8.2 g/dL (12.0-16.0)
[2025-03-03 06:29] LABS: Alanine Aminotransferase 15 U/L (10-49); Albumin, Serum 3.6 gm/dL (3.5-5.0); Albumin/Globulin Ratio 1.2 (1.2-2.2); Alkaline Phosphatase 102 U/L (46-116); Anion Gap 7 (7-16); Aspartate Amino Transferase 20 U/L (0-34); BUN/Creatinine Ratio 14 Ratio (12-20); Bilirubin,Total 0.4 mg/dL (0.3-1.2); Blood Urea Nitrogen 10 mg/dL (9-23); Calcium 8.3 mg/dL (8.3-10.6); Calcium (Corrected) 8.6 mg/dL (8.5-10.1); Carbon Dioxide 26.2 mMol/L (20.0-31.0); Chloride 107 mMol/L (98-107); Creatinine (Component) 0.7 mg/dL (0.6-1.3); Estimated Creatinine Clearance 137.7 mL/min (>60); Glucose 113 mg/dL (74-106); Magnesium 1.9 mg/dL (1.6-2.6); Osmolality,Calculated 279 (275-295); Phosphorous 3.1 mg/dL (2.4-5.1); Potassium 4.2 mMol/L (3.4-5.1); Sodium 140 mMol/L (136-145); Total Protein 6.6 gm/dL (5.7-8.2); eGFR > 60 See Note
--- NOTE | 2025-03-03 08:15 | PC.NURSE ---
Pt NPO for possible EGD. Per patient, Dr.'s have not spoke to patient yet regarding EGD. Endo said patient is not on the list. Called Dr. Curtis to add patient to the list. Phone kept disconnecting and was unable to confirm with Dr. Curtis. Called Dr. Angelo and informed him. Dr. Angelo will contact Dr. curtis to inquire about adding patient to procedure list.
[2025-03-03] MEDS: DOXYCYCLINE INJ 100 MG in SODIUM CHLORIDE 0.9% (POP) 100 ML IV ×2 (08:38→20:52)
[2025-03-03] MEDS: PANTOPRAZOLE INJ 40 MG VIAL IVP ×2 (08:38→20:51)
[2025-03-03] MEDS: RINGERS LACTATED 1000 ML 1,000 ML 125 ML IV (12:45)
--- NOTE | 2025-03-03 13:09 | SUR.PHASEI ---
Pt. arrived to recovery via gurney, eyes closed, VSS, responds to verbal commands, no c/o pain or nausea at this time. Lung sounds clear, equal expansion jessica., report received from Tamar EDOUARD and Dr. Clark.
--- NOTE | 2025-03-03 13:11 | SUR.PHASEI ---
1311: Report received from aMriana EDOUARD. Pt. AAOx4, vitals stable, breathing unalbored, no complaint of pain or nausea, no dressing in place, no active bleed noted.
--- NOTE | 2025-03-03 13:40 | SUR.PHASEI ---
1340:Pt. AAOx4, vitals stable, breathing unlabored, no complaint of pain or nausea, no dressing in place, no active bleed noted, pt. tolerated sips of soda well, gave report to Marika EDOUARD prior to transfer to room 373. Family made aware of transfer to room.
--- NOTE | 2025-03-03 14:21 | PC.SS ---
Patient is alert/oriented. Patient was able to verify demographics. Patient was admitted for cellulitis. Patient states she resides with mother. Patient is independent with ADL's. EGD pending. Patient does not have any income. She has FS. Patient has transport through [facility].
--- NOTE | 2025-03-03 14:57 | PC.SS ---
Patient is alert/oriented. Patient was able to verify demographics. Patient was admitted for cellulitis. Patient states she resides with mother. Patient is independent with ADL's. EGD pending. Patient does not have any income. She has FS. Patient has transport through [facility]. Patient has EGD pending. Pharmacy: [facility]. PCP: [facility]. Last appt. was 2 months ago. Patient verbalized her alt medical decision maker is her sister, Shankar, . Patient's discharge plan is to return home. Transportation: family to provide alt medical decision maker: SisterShankar,
--- NOTE | 2025-03-03 15:39 | ESPR_ITS ---
Documentation for date of: 03/03/25 Subjective Subjective Interval history: No overnight events. Patient seen examined at bedside, resting comfortably. Patient endorses pain and tenderness right lower extremity, improved. Patient denies current fevers, chills, nausea, vomiting, melena, hematochezia, hematemesis, nausea, vomiting, abdominal pain. Hemoglobin stable. EGD performed today, no overt bleeding, diffuse gastritis. Probable DC tomorrow. Exam Vital Signs Temp Pulse Resp BP Pulse Ox O2 Del Method 97.1 F 99 12 145/93 H 99 Room Air 03/03/25 14:15 03/03/25 14:15 03/03/25 14:15 03/03/25 14:15 03/03/25 14:15 03/03/25 14:15 Narrative Exam PE: Gen: Well-developed and well-nourished. Obese. HEENT: NCAT, PERRLA, EOMI, MMM, anicteric conjunctivae. CVS: normal S1 and S2. RRR. No M/R/G. Resp: CTA B/L. No rhonchi, rales, crackles or wheezing. Poor lung sounds due to body habitus. Abd: soft, non-tender, non-distended. MSK: Good ROM in BUE & BLE. Bilateral lower extremity edema. Right ankle erythema, tenderness, swelling up to mid washburn, notably improved. Neuro: CN II-XII grossly intact. Strength 5/5 in BUE & BLE. Alert and oriented x3. Psych: appropriate mood and affect. Objective Labs 03/03/25 05:06 03/03/25 05:06 Labs: Laboratory Results - last 24 hr 03/02/25 03/03/25 03/03/25 12:49 00:06 05:06 WBC 6.6 RBC 4.77 Hgb 7.6 L 8.2 L Hct 28.2 L 31.0 L MCV 65 L MCH 17.2 L MCHC 26.5 L RDW Std Deviation 48.3 H Plt Count 467 H D Neut % (Auto) 57 Lymph % (Auto) 30 [place] % (Auto) 9 Eos % (Auto) 4 Baso % (Auto) 1 Neut # (Auto) 3.7 Lymph # (Auto) 2.0 [place] # (Auto) 0.6 Eos # (Auto) 0.2 Baso # (Auto) 0.0 Immature Gran # (Auto) 0.04 H Absolute Nucleated RBC 0.00 Immature Gran % 1 H Nucleated RBC % 0 Smear Path Review Cancelled Retic Count (auto) 1.2 Absolute Retic 57.2 Immature Retic Fraction 35.3 H Retic Hgb Content CHr 15.9 L Sodium 138 140 Potassium 3.7 4.2 D Chloride 106 107 Carbon Dioxide 26.6 26.2 Anion Gap 5 L 7 BUN 11 10 Creatinine 0.9 0.7 Estim Creat Clear Calc 107.1 137.7 eGFR > 60 > 60 BUN/Creatinine Ratio 12 14 Glucose 146 H 113 H Calculated Osmolality 278 279 Calcium 8.2 L 8.3 Corrected Calcium 8.4 L 8.6 Phosphorus 3.0 3.1 Magnesium 1.9 Total Bilirubin 0.4 AST 20 ALT 15 Alkaline Phosphatase 102 Total Protein 6.6 Albumin 3.7 3.6 Globulin 3.0 Albumin/Globulin Ratio 1.2 Blood Type O Positive Antibody Screen NEGATIVE Crossmatch See Detail Blood Bank Wristband ID Yes Quality Measures Quality Measures none (Anticoag contraindicated due to anemia, SCDs contraindicated due to cellulitis.) Assessment & Plan Assessment Current Active Medications: Generic Name Dose Route Start Last Admin Trade Name Freq PRN Reason Stop Dose Admin Acetaminophen 650 mg 03/02/25 03:09 Acetaminophen 325 Mg Tablet PO 04/01/25 03:08 Q6H PRN Fever >101.5 Acetaminophen 650 mg 03/02/25 03:09 Acetaminophen 325 Mg Tablet PO 04/01/25 03:08 Q6H PRN PAIN SCALE 1-3 (mild Ferrous Sulfate 325 mg 03/02/25 09:00 03/02/25 08:05 Ferrous Sulf 325 Mg Tablet PO 04/01/25 08:59 325 mg QOD ARIANNA Administration Heparin Sodium (Porcine) 5,000 unit 03/02/25 06:00 03/02/25 05:34 Heparin Sod Inj 5000 Unit/Ml Vial SC 03/16/25 05:59 5,000 unit Q8HR ARIANNA Administration Hydromorphone HCl 0.5 mg 03/02/25 03:09 03/02/25 21:22 Hydromorphone Inj 2 Mg/Ml Vial IVP 03/07/25 03:08 0.5 mg Q2H PRN Administration PAIN SCALE 7-10 (Severe Cefazolin Sodium 2 gm in 100 mls @ 100 mls/hr 03/02/25 06:00 03/03/25 14:17 Ancef 2gm Ivpb IV 03/09/25 05:59 100 mls/hr Q8HR ARIANNA Administration Doxycycline Hyclate 100 mg/ 100 mls @ 100 mls/hr 03/02/25 09:00 03/03/25 08:38 Sodium Chloride IV 03/09/25 08:59 100 mls/hr Q12H ARIANNA Administration Lactated Ringer's 1,000 mls @ 125 mls/hr 03/03/25 12:00 03/03/25 12:45 Lactated Ringers IV 03/03/25 19:59 125 mls/hr .Q8H ONE Administration Ondansetron HCl 4 mg 03/02/25 03:09 03/02/25 03:49 Ondansetron Inj 2 Mg/Ml Inj 2 Ml IV 04/01/25 03:08 4 mg Q6H PRN Administration NAUSEA OR VOMITING Protocol Oxycodone/Acetaminophen 1 tab 03/02/25 03:09 03/02/25 06:16 Oxycodone/Apap 5/325 Tablet PO 03/07/25 03:08 1 tab Q6H PRN Administration PAIN SCALE 4-6 (Moderate Pantoprazole Sodium 40 mg 03/02/25 13:45 03/03/25 08:38 Pantoprazole Inj 40 Mg Vial IVP 04/01/25 13:44 40 mg BID ARIANNA Administration Plan 45-year-old female with significant past medical history of morbid obesity, chronic iron deficiency anemia, chronic lower extremity swelling and methamphetamine abuse presented with chief complaint of right lower extremity redness and pain, admitted for further management of right leg cellulitis. #Acute on chronic microcytic anemia Likely secondary to occasional heavy menstrual bleed, iron panel on 2019 revealed iron deficiency anemia Presented with hemoglobin of 7.3 and MCV 60 with RDW 40.1 Hemoglobin dropped to 6.8 after admission, confirmed on repeat testing. Patient denies hematemesis, melena, hematochezia. GI consulted. Iron panel indicates ANABEL: Iron 8, TIBC 315, unsaturated iron binding 307, and ferritin 48. Patient received EGD, which showed diffuse gastritis without overt bleeding. GI recommended avoid NSAIDs, follow-up outpatient for colonoscopy. - Started the patient on ferrous sulfate 325 mg every other day - GI consulted, appreciate recommendations - Hold anticoagulation - H. pylori antigen testing #Right leg cellulitis, nonseptic #Chronic bilateral lower extremity swelling Patient presented with right leg erythema for 1 day, associated with pain and swelling, and subjective chills. Patient reported chronic bilateral leg swelling. Denied any physical injury. On exam was small area of fluctuance on medial. Presented with white count of 16.6, CRP 17.0, Pro-Reinaldo 1.17 and ESR 83. Patient received 1 L IV normal saline bolus in the ED and ampicillin-sulbactam 3 g IV x 1 in the ED Bilateral lower extremity duplex ultrasound negative. CT right lower extremity showed no abscess, soft tissue edema. - Started on cefazolin 2 g every 8 hourly (started 03/02) - Started on doxycycline 100 Mg twice daily (started 03/02) - Blood culture ordered #Morbid obesity - Nutritional consultation done #Methamphetamine abuse disorder - Social service consulted Diet: Regular diet DVT prophylaxis: Contraindicated GI prophylaxis: Protonix 40 mg twice daily CODE STATUS: Full code Plan of care discussed with attending Dr. Sanchez. Johnny Pastrana MD PGY?1
[2025-03-04] VITALS: BP 133/63; PULSE 71; RESP 19; TEMP 36; O2SAT 98
[2025-03-04 04:00] VITALS: BP 117/78; PULSE 85; RESP 16; TEMP 36.1; O2SAT 99
[2025-03-04] MEDS: ceFAZolin/D5W 2 GM IV 2 GM/100 ML BAG IV (05:19)
[2025-03-04 05:35] LABS: Basophils # (Auto) 0.1 Thou/mm3 (0.0-0.2); Basophils % (Auto) 1 % (0-2.5); Eosinophils # (Auto) 0.2 Thou/mm3 (0.0-0.5); Eosinophils % (Auto) 3 % (0-10); Hematocrit 28.7 % (36.0-46.0); Immature Granulocytes % (Auto) 0 % (0-0); Immature Granulocytes Auto 0.02 Thou/mm3 (0.00-0.00); Lymphocytes % (Auto) 31 % (10-50); Mean Corpuscular HGB Conc 27.2 g/dl (31.0-37.0); Mean Corpuscular Hemoglobin 17.5 pg (25.0-35.0); Mean Corpuscular Volume 64 fL (80-100); Monocytes # (Auto) 0.4 Thou/mm3 (0.0-0.8); Monocytes % (Auto) 7 % (0-12); Neutrophils # (Auto) 3.7 Thou/mm3 (1.8-7.7); Neutrophils % (Auto) 58 % (37-80); Nucleated Red Blood Cell # 0.02 Thou/mm3 (0.00-0.00); Nucleated Red Blood Cell % 0 /100 WBC (0); Platelet Count 512 Thou/mm3 (140-440); RDW Standard Deviation 47.6 fL (36.4-46.3); Red Blood Count 4.46 Miln/mm3 (4.00-5.20); White Blood Count 6.3 Thou/mm3 (3.6-11.0)
[2025-03-04 05:38] LABS: Hemoglobin 7.8 g/dL (12.0-16.0)
[2025-03-04 06:12] LABS: Alanine Aminotransferase 10 U/L (10-49); Albumin, Serum 3.7 gm/dL (3.5-5.0); Anion Gap 7 (7-16); Aspartate Amino Transferase 10 U/L (0-34); BUN/Creatinine Ratio 12 Ratio (12-20); Bilirubin,Total 0.4 mg/dL (0.3-1.2); Blood Urea Nitrogen 7 mg/dL (9-23); Calcium 8.6 mg/dL (8.3-10.6); Carbon Dioxide 28.5 mMol/L (20.0-31.0); Chloride 106 mMol/L (98-107); Creatinine (Component) 0.6 mg/dL (0.6-1.3); Estimated Creatinine Clearance 160.6 mL/min (>60); Glucose 116 mg/dL (74-106); Osmolality,Calculated 280 (275-295); Phosphorous 3.6 mg/dL (2.4-5.1); Potassium 3.6 mMol/L (3.4-5.1); Sodium 141 mMol/L (136-145); Total Protein 6.4 gm/dL (5.7-8.2); eGFR > 60 See Note
[2025-03-04 06:13] LABS: Albumin/Globulin Ratio 1.4 (1.2-2.2); Alkaline Phosphatase 96 U/L (46-116); Calcium (Corrected) 8.8 mg/dL (8.5-10.1); Globulin 2.7 gm/dL (2.3-3.5)
[2025-03-04 07:50] VITALS: BP 134/83; RESP 16; TEMP 36.3; O2SAT 100
[2025-03-04] MEDS: FERROUS SULF 325 MG TABLET PO (08:20)
[2025-03-04] MEDS: PANTOPRAZOLE INJ 40 MG VIAL IVP (08:20)
[2025-03-04] MEDS: DOXYCYCLINE INJ 100 MG in SODIUM CHLORIDE 0.9% (POP) 100 ML IV (08:21)
[2025-03-04 12:00] VITALS: BP 121/78; PULSE 88; RESP 18; TEMP 36.6; O2SAT 98
--- NOTE | 2025-03-04 13:27 | ESDS_ITS ---
<Statement entered by Lorena Solitario MD - 03/04/25 15:46> 45-year-old female with a past medical history of iron deficiency anemia secondary to menorrhagia and methamphetamine use disorder was admitted for evaluation and management of left lower extremity cellulitis. Lower extremity ultrasound was negative for DVT. CT of the lower extremity showed soft tissue edema but no abscess. Patient received IV antibiotics, with improvement in pain, swelling, and erythema. Blood cultures remained negative. During hospitalization, patient developed anemia with Hgb 6.8 g/dL.She received 1 unit of PRBCs.Occult blood test was positive.GI consulted ? EGD revealed mild gastritis, likely NSAID-induced (patient had been taking NSAIDs at home). Today?s Evaluation: Patient is hemodynamically stable. Pain significantly improved, edema and erythema improved Patient is ambulating independently. Discharge Plan: #Cellulitis: Discharge home on oral antibiotics; complete course as prescribed. #ANABEL: Continue oral iron supplementation. #Gastritis:Stop NSAIDs.Continue PPI.Follow peptic ulcer diet.Outpatient GI follow-up #Menorrhagia:Outpatient [facility] follow-up. Schedule pelvic ultrasound to assess for endometrium #Methamphetamine use disorder: Patient was extensively counseled on the risks and offered resources for substance use treatment. PCP: in 1?2 weeks GI and [facility] as outlined above Patient verbalized understanding of the plan. All questions and concerns addressed. I discussed with and supervised the international editorial producer physician who took care of this patient. I personally saw and examined the patient and discussed the assessment and plan with the entire medicine team, including my attending , I agree with the assessment and plan as documented below Lorena Solitario M.D. PGY-2 Disclaimer: Despite multiple revisions, due to the dictation software being used, the document bellow may not be free of grammatical errors including phonetic/typographic errors. However, this does not deter from our commitment to providing health care in the patient's best interest in mind. Planned Discharge Date 03/04/25 DS: Providers Provider Date of admission: 03/02/25 03:09 Primary care physician: Srinivas Perez PA-C Admitting Provider: Patrick Hubbard MD Attending Provider on Admission: Juan Sanchez MD Consults: 03/02/25 04:01 Referral Nutritional Services Routine Comment: 03/02/25 13:32 Consult to Gastroenterology Routine Comment: Consulting Provider: Claudio Casas Attending Provider on DC: Juan Sanchez MD Discharging Provider: Johnny Pastrana MD DS: Diagnosis Problem List Completed Was Problem List Reviewed/Reconciled?: Yes Hospital Course Hospital Course Hospital course: 45-year-old female with significant past medical history of morbid obesity, chronic iron deficiency anemia, chronic lower extremity swelling and methamphetamine abuse presented with chief complaint of right lower extremity redness and pain, admitted for cellulitis. During course of stay patient developed drop in hemoglobin, received transfusion. GI was consulted, performed EGD which showed diffuse gastritis without overt bleeding. Hemoglobin remained stable. Patient cellulitis improved with appropriate IV antibiotics. Patient cleared for discharge from GI perspective. Patient medically stable and cleared for discharge. Discharge plan: You have been started on the following medications: - Augmentin 1 tab twice daily for 4 more days - Doxycycline 100 mg twice daily for 4 more days The following medications have been STOPPED: -Ibuprofen Please avoid all NSAIDs. Please follow-up with your primary doctor within 2 weeks. Please seek referral to GI for further workup. Diagnoses: #Acute on chronic microcytic anemia #Right leg cellulitis, nonseptic #Chronic bilateral lower extremity swelling #Morbid obesity #Methamphetamine abuse disorder Plan of care discussed with senior resident Dr. Solitario PGY?[address] Sanchez. Johnny Pastrana MD PGY?1 Status at Discharge Overall status at discharge: patient is progressing back to baseline Time Spent with Patient Time attestation: Total time spent providing and/or coordinating discharge services: Time spent: Greater than 30 minutes Exam Vital Signs Temp Pulse Resp BP Pulse Ox O2 Del Method 97.3 F 85 16 134/83 H 100 Room Air 03/04/25 07:50 03/04/25 04:00 03/04/25 07:50 03/04/25 07:50 03/04/25 07:50 03/04/25 07:50 Narrative Exam PE: Gen: Well-developed and well-nourished. Obese. HEENT: NCAT, PERRLA, EOMI, MMM, anicteric conjunctivae. CVS: normal S1 and S2. RRR. No M/R/G. Resp: CTA B/L. No rhonchi, rales, crackles or wheezing. Poor lung sounds due to body habitus. Abd: soft, non-tender, non-distended. MSK: Good ROM in BUE & BLE. Bilateral lower extremity edema. Right ankle erythema, tenderness, swelling up to mid washburn, notably improved. Neuro: CN II-XII grossly intact. Strength 5/5 in BUE & BLE. Alert and oriented x3. Psych: appropriate mood and affect. Discharge Plan Plan Patient Disposition: HOME (Self Care) Patient condition on transfer: Stable Care Plan Goals: You have been started on the following medications: - Augmentin 1 tab twice daily for 4 more days - Doxycycline 100 mg twice daily for 4 more days The following medications have been STOPPED: -Ibuprofen Please avoid all NSAIDs. Please follow-up with your primary doctor within 2 weeks. Please seek referral to GI for further workup. Prescriptions/Referrals Prescriptions/Med Rec: New doxycycline hyclate 100 mg tablet 100 mg PO BID 4 Days Qty: 8 0RF amoxicillin-pot clavulanate 875-125 mg tablet 1 tab PO BID 4 Days Qty: 8 0RF Continued cyclobenzaprine 10 mg tablet 10 mg PO TID Qty: 30 0RF ferrous sulfate 325 mg (65 mg iron) tablet,delayed release (DR/EC) 325 mg PO BID Patient Comments: TAKE 1 TABLET BY MOUTH TWICE A DAY WITH MEALS albuterol sulfate 90 mcg/actuation HFA aerosol inhaler 2 puff inhalation Q4H Qty: 8.5 0RF Discontinued ibuprofen 600 mg tablet 600 mg PO Q6H Qty: 30 0RF Referrals: Srinivas Perez PA-C [Primary Care Provider] - Patient/Caregiver Discharge Instructions Discharge Activity: activity as tolerated Education Materials: Anemia, Iron Supplements, Discharge Instructions for Cellulitis, ED Cellulitis Print Language: Filipino Stand Alone Forms: [employer] Award Info., Patient Portal Info Letter Discharge Order Discharge Orders: Discharge (Routine); Ordered 03/04/25 Ordered By: Johnny Pastrana Quality Discharge Quality Measures VTE prophylaxis
== END 2025-03-04 13:22 | disposition home or self-care (01) | DRG 603 ==
LOC: SERX 02:32 → SERHOLD 03:28 → S3SX 05:26
PROVIDERS: Internal Medicine Gastroenterology; Student in an Organized Health Care Education/Training Program; Admitting Provider Student in an Organized Health Care Education/Training Program; Emergency Provider Emergency Medicine; PCP Physician Assistant; Visit Provider Internal Medicine
PROC: 0DB98ZX Excision of Duodenum, Via Natural or Artificial Opening Endoscopic, Diagnostic (ICD-10-PCS; CPT 43239; principal; 2025-03-03 17:30)
DX: L03.115 Cellulitis of right lower limb (principal); Z68.43 Body mass index [BMI] 50.0-59.9, adult; E66.01 Morbid (severe) obesity due to excess calories; D50.9 Iron deficiency anemia, unspecified; F15.10 Other stimulant abuse, uncomplicated; F17.290 Nicotine dependence, other tobacco product, uncomplicated; K29.70 Gastritis, unspecified, without bleeding
CPT/HCPCS: 36415; 71045; 73701; 80053; 80061; 80069; 81001; 82728; 83036; 83540; 83550; 83605; 83735; 84100; 84145; 84439; 84443; 84703; 85014; 85018; 85025; 85046; 85652; 86140; 86850; 86900; 86901; 86923; 87040; 87338; 93970; A4649; J0295; J0689; J1643; J2405; J2470; J3490; J7030; J7120; P9016; Q9967; A9270

== ENCOUNTER 2025-04-02 14:08 | Emergency (ER) | payer OTHER, MEDICAID, SELFPAY ==
--- NOTE | 2025-04-02 14:12 | EDNOTE_ITS ---
ED Medical Clearance E/HPI General Chief complaint: General Adult/Misc Complain Stated complaint: MEDICAL CLEARANCE Time Seen by Provider: 04/02/25 14:14 Arrival date/time: 04/02/25 14:08 E / HPI E / HPI Narrative: DR. WATSON MAIN ED EVALUATION: 45 y/o female with Hx of Edema and HTN BIB [facility] requesting medical clearance due to BLE swelling x 2 days. Patient has an upcoming appointment with her clinic on Friday. Patient was seen here 2 weeks ago for cellulitis which has been resolved with antibiotics. No other concerns or complaints expressed at this time. Related Information Home Medications ?Medication ?Instructions ?Recorded ?Confirmed ferrous sulfate 325 mg (65 mg 325 mg PO BID 07/25/21 0 07/25/21 iron) tablet,delayed release Previous Rx's ?Medication ?Instructions ?Recorded cyclobenzaprine 10 mg tablet 10 mg PO TID #30 tabs 12/06 albuterol sulfate 90 mcg/actuation 2 puff inhalation Q 4H #8.5 grams 07/25/21 aerosol inhaler Allergies Allergy/AdvReac Type Severity Reaction Status Date / Time No Known Allergies Allergy Verified 04/02/25 14:31 Review of Systems Review of Systems Systems Reviewed: All systems reviewed, normal except as documented Narrative Review of Systems: Gen: No fever, no chills, no weight loss EYES: No discharge, no visual changes, no pain HEENT: No ear pain, no congestion, no sore throat PULM: No shortness of breath, no cough, no congestion CV: No chest pain, no dyspnea on exertion, no palpitations GI: No nausea, no vomiting, no diarrhea, no pain, no constipation : No frequency, no urgency, no dysuria Musc/skel: Positive BLE edema, no joint pain, no back pain Skin: No rash Psyc: No hallucinations, no depression Heme/Lymph: No easy bleeding or bruising tendencies Neuro: No weakness, no headache Past Medical History Past Medical History GASTROINTESTINAL: Positive Gastrointestinal Disorders and Gall Bladder Disease GENITOURINARY: Positive Genitourinary Disorders and Kidney Stones REPRODUCTIVE: Positive Previous Pregnancies HEMATOLOGIC: Positive Blood Disorders and Anemia OTHER HISTORY: Positive Blood Transfusions Surgical History SURGICAL: Positive Abdominal Surgery Social History SMOKING STATUS: Light (< 1 pack/day) SECOND HAND EXPOSURE: Yes SUBSTANCE USE: amphetamines ED Exam Narrative Physical exam: GENERAL APPEARANCE: AxOx4, generally well-appearing, no acute distress. HEENT: NC, AT. MMM. EOMI, clear conjunctiva, oropharynx clear. NECK: Supple without lymphadenopathy. No stiffness or restricted ROM. HEART: Normal rate and regular rhythm, normal S1/S1, no m/r/g LUNGS: CTAB, moving air well. No crackles or wheezes are heard. ABDOMEN: Soft, nontender, nondistended with good bowel sounds heard. BACK: No midline C/T/L spine pain or deformity, No CVAT, no obvious deformity. EXTREMITIES: Chronic BLE non-pitting edema, no erythema, no warmth, no induration. Without cyanosis. MUSCULOSKELETAL: FROM of all major joints, no chest tenderness NEUROLOGICAL: Grossly nonfocal. Alert and oriented, moving all 4 extremities. CN not formally tested but appear grossly intact. Observed to ambulate with normal gait. Skin: Warm and dry without any rash. Course Quality Measures none Vital Signs Vital signs: Vital Signs Temperature 98.4 F 04/02/25 14:13 Pulse Rate 95 04/02/25 14:13 Respiratory Rate 17 04/02/25 14:13 Blood Pressure 155/69 H 04/02/25 14:13 Pulse Oximetry (%) 95 04/02/25 14:13 Oxygen Delivery Method Room Air 04/02/25 14:13 Medical Clearance MDM Narrative MDM Narrative:: Scribe Attestation: Irina Arellano, fermin scribing for and in the presence of Dr. Watson. Provider Notation: Although this document has been carefully reviewed, there may still be some phonetic and other typographical errors.? These errors are purely grammatical due to imperfections in the software program and should not be construed in any way to? compromise the substance of the patient's medical care during this visit. Patient advised to discontinue antibiotics as she no longer needs them. [facility]. Patient data External records reviewed:: [facility] previous records and Other (specify) ([facility]) Clinical information provided by:: patient and law enforcement ([facility]) Social determinants that could affect healthcare access:: substance use Patient has the following chronic illnesses:: Gall Bladder Disease, Kidney Stones, Anemia How is presenting disease/condition affected by chronic disease/condition?: uneffected by Evaluation data The following diagnostics were reviewed and interpreted by me:: other (specify) (N/A) Lab and/or radiology exams considered but not ordered:: None Interpretation Summary: N/A Medications / Prescriptions Medications or Prescriptions considered but not ordered:: None Medication administrations:: N/A Consultations Consultation(s) initiated? (list below): No Diagnosis Medical Clearance Differential Diagnosis: other (CHF, liver disease, kidney disease, hypothyroidism, lymphoedema, lipedema, venous insufficiency) Most likely diagnosis given after review of the tests above:: Lymphedema Admission Indicated Admission indicated?: not indicated Explain why admission is indicated or not indicated:: Does not meet admission criteria Admission Request Was there a request for admission?: No Disposition Plan Disposition Plan: Discharge Discharge Attestation Discharge Attestation: The patient and all family members were given an opportunity to ask questions and understood the discharge instructions. Discharge instructions specifically effects, indications for sooner follow up or return to the emergency department, and the expected course of current diagnosis. Patient condition: Stable Discharge Plan Plan Patient Disposition: HOME (Self Care) Prescriptions/Referrals Prescriptions/Med Rec: No Action cyclobenzaprine 10 mg tablet 10 mg PO TID Qty: 30 0RF ferrous sulfate 325 mg (65 mg iron) tablet,delayed release (DR/EC) 325 mg PO BID Patient Comments: TAKE 1 TABLET BY MOUTH TWICE A DAY WITH MEALS albuterol sulfate 90 mcg/actuation HFA aerosol inhaler 2 puff inhalation Q4H Qty: 8.5 0RF Problem List Clinical Impression: Lymphedema Patient/Caregiver Discharge Instructions Education Materials: ED Lymphedema Additional Instructions: Follow-up with your primary doctor as scheduled. Your infection has cleared, you no longer need to take the antibiotic. Print Language: [place] Stand Alone Forms: Kaylen Award Info., Patient Portal Info Letter
[2025-04-02 14:13] VITALS: BP 155/69; PULSE 95; RESP 17; TEMP 36.9; O2SAT 95
[2025-04-02 14:28] VITALS: BMI 59.2
== END 2025-04-02 14:28 | disposition home or self-care (01) ==
LOC: SERX 14:20
PROVIDERS: Emergency Provider Emergency Medicine; PCP Physician Assistant
DX: I89.0 Lymphedema, not elsewhere classified (principal); I10 Essential (primary) hypertension
CPT/HCPCS: 99281

== ENCOUNTER 2025-08-10 20:58 | Emergency (ER) | payer MEDICAID, SELFPAY ==
[2025-08-10 21:02] VITALS: BMI 32.5
[2025-08-10 21:04] VITALS: BP 160/89; PULSE 88; RESP 18; TEMP 37.3; O2SAT 97
[2025-08-10 21:33] VITALS: PULSE 78; RESP 16; O2SAT 98
--- NOTE | 2025-08-10 21:56 | EDNOTE_ITS ---
ED Extremity Problem RME/HPI General Chief complaint: Extremity Problem,Nontraumatic Stated complaint: BILATERAL LEG PAIN Time Seen by Provider: 08/10/25 21:51 Arrival date/time: 08/10/25 20:58 RME / HPI RME / HPI Narrative: DR. RAUSCH MAIN ED EVALUATION: 45 y/o female with Hx of Amphetamine Use BIBA from home presents to ED c/o BLE swelling and pain to the BL feet x 4 days. Patient is unable to walk due to the pain. She remained in bed all day yesterday. Related Data Home Medications ?Medication ?Instructions ?Recorded ?Confirmed ferrous sulfate 325 mg (65 mg 325 mg PO BID 07/25/21 0 07/25/21 iron) tablet,delayed release Previous Rx's ?Medication ?Instructions ?Recorded cyclobenzaprine 10 mg tablet 10 mg PO TID #30 tabs 12/06 albuterol sulfate 90 mcg/actuation 2 puff inhalation Q 4H #8.5 grams 07/25/21 aerosol inhaler clindamycin HCl 300 mg capsule 300 mg PO Q6H 10 days # 40 caps 08/10/25 hydrocodone 10 mg-acetaminophen 1 tab PO Q6H PRN pain #30 tabs 08/10/25 325 mg tablet Allergies Allergy/AdvReac Type Severity Reaction Status Date / Time No Known Allergies Allergy Verified 04/02/25 14:31 Review of Systems Review of Systems Systems Reviewed: All systems reviewed, normal except as documented Past Medical History Past Medical History GASTROINTESTINAL: Positive Gastrointestinal Disorders, Gall Bladder Disease and Obesity GENITOURINARY: Positive Genitourinary Disorders and Kidney Stones REPRODUCTIVE: Positive Previous Pregnancies HEMATOLOGIC: Positive Blood Disorders and Anemia OTHER HISTORY: Positive Blood Transfusions Surgical History SURGICAL: Positive Abdominal Surgery Social History SMOKING STATUS: Current some day smoker SUBSTANCE USE: amphetamines ED Exam Narrative Physical exam: Generally patient is alert obese in no obvious distress, heart regular rate and rhythm, lungs clear to auscultation equal bilaterally, abdomen is obese soft nontender extremities show chronic bilateral lower extremity lymphedema with dry Cracked callused skin to bilateral feet. Patient does have an area of cracking to the plantar surfaces of the 1st and 2nd toe at the metatarsal phalangeal joints that has a mild amount of exudate that can be expressed from under the callused regions. Course Quality Measures none Orders Category Date Time Status Morphine* Inj Med 08/10/25 21:45 Discontinued 4 mg IVP X1 ONE Vital Signs Vital signs: Vital Signs Temperature 99.1 F 08/10/25 21:04 Pulse Rate 88 08/10/25 21:04 Respiratory Rate 18 08/10/25 21:04 Blood Pressure 160/89 H 08/10/25 21:04 Pulse Oximetry (%) 97 08/10/25 21:04 Oxygen Delivery Method Room Air 08/10/25 21:04 Extremity Problem MDM Narrative MDM Narrative:: Scribe Attestation: IIrina, am scribing for and in the presence of Dr. Rausch. Provider Notation: Although this document has been carefully reviewed, there may still be some phonetic and other typographical errors. These errors are purely grammatical due to imperfections in the software program and should not be con strued in any way to compromise the substance of the patient's medical care during this visit. Differential diagnosis, lymphedema, cellulitis, abscess Patient was given morphine 4 mg IV for pain. She will be discharged on clindamycin and [place] to be taken as prescribed for pain. She must follow-up with primary care for podiatry referral. Patient data External records reviewed:: [facility] previous records (Reviewed prior ED records from 03/02/25. Patient was seen for Cellulitis of right lower leg.) and EMS form Clinical information provided by:: patient and EMS Social determinants that could affect healthcare access:: substance use Patient has the following chronic illnesses:: Amphetamine use, Gall Bladder Disease, Obesity, Kidney Stones, Anemia How is presenting disease/condition affected by chronic disease/condition?: exacerbated by Evaluation data The following diagnostics were reviewed and interpreted by me:: other (specify) (N/A) Lab and/or radiology exams considered but not ordered:: None Interpretation Summary: See MDM above Medications / Prescriptions Medications or Prescriptions considered but not ordered:: None Medication administrations:: Medication Administration History Discontinued Medications Morphine Sulfate (Morphine Sulf Inj 4 Mg/Ml Vial) 4 mg IVP X1 ONE Stop: 08/10/25 21:46 Last Admin: 08/10/25 21:53 Dose: Not Given Documented By: SF Non-Admin Reason: Wrong Patient See above if any Consultations Consultation(s) initiated? (list below): No Diagnosis Extremity Problem Differential Diagnosis: herpes zoster, gout, cellulitis, superficial thrombophlebitis, lower extremity edema and deep vein thrombosis of lower extremity Most likely diagnosis given after review of the tests above:: none Admission Indicated Admission indicated?: not indicated Explain why admission is indicated or not indicated:: Patient does not meet admission criteria Admission Request Was there a request for admission?: No Disposition Plan Disposition Plan: Discharge Discharge Attestation Discharge Attestation: The patient and all family members were given an opportunity to ask questions and understood the discharge instructions. Discharge instructions specifically effects, indications for sooner follow up or return to the emergency department, and the expected course of current diagnosis. Patient condition: Stable Discharge Plan Plan Patient Disposition: HOME (Self Care) Prescriptions/Referrals Prescriptions/Med Rec: New hydrocodone-acetaminophen 10-325 mg tablet 1 tab PO Q6H MDD 4 PRN (Reason: pain) Qty: 30 0RF clindamycin HCl 300 mg capsule 300 mg PO Q6H 10 Days Qty: 40 0RF No Action cyclobenzaprine 10 mg tablet 10 mg PO TID Qty: 30 0RF ferrous sulfate 325 mg (65 mg iron) tablet,delayed release (DR/EC) 325 mg PO BID Patient Comments: TAKE 1 TABLET BY MOUTH TWICE A DAY WITH MEALS albuterol sulfate 90 mcg/actuation HFA aerosol inhaler 2 puff inhalation Q4H Qty: 8.5 0RF Problem List Clinical Impression: Bilateral foot pain, Cellulitis Patient/Caregiver Discharge Instructions Additional Instructions: Take the medication as prescribed. Your primary care physician should refer you to a anesthesiologist/physician. Print Language: Syriac Stand Alone Forms: Kaylen Award Info., Patient Portal Info Letter
[2025-08-10 22:33] VITALS: BP 157/99; PULSE 70; RESP 20; TEMP 37.2; O2SAT 98
== END 2025-08-10 22:35 | disposition home or self-care (01) ==
LOC: SERX 22:28
PROVIDERS: Emergency Provider Emergency Medicine; PCP Physician Assistant
DX: L03.116 Cellulitis of left lower limb (principal); L03.115 Cellulitis of right lower limb
CPT/HCPCS: 99281